=== PATIENT | female | born 1950 | race Caucasian/White ===

== ENCOUNTER 2017-12-19 09:47 | Day surgery (SDC) | payer MEDICARE, OTHER ==
[~2017-12-19] VITALS: Ht 157.5 cm; Wt 116.4 kg
[~2017-12-19 09:47] MED LIST: 0.9% SODIUM CHLORIDE 10 ML SYRINGE IVP ONE; 0.9% SODIUM CHLORIDE 10 ML SYRINGE IVP PRN; ADV500 IH; ALBU8HFA IH; ALBU8HFA4 IH; DILT180C63 PO; FLUT16H NASAL; MELO-107 PO; METOPROLOL TARTRATE 50 MG TABLET PO ONE; PRED20 PO; RIVA20TA PO
[2017-12-19 10:33] LABS: GLUCOMETER DEV NAME(LOC) SDS 5; GLUCOSE,POINT OF CARE 91 MG/DL (70-110)
[2017-12-19] MEDS ORDERED: METOPROLOL TARTRATE 50 MG TABLET ONE (10:35)
[2017-12-19] MEDS ORDERED: NITROGLYCERIN 400 MCG/SUBLINGUAL SPRAY 4.9 GM BOTTLE SL ONE (10:41)
[2017-12-19] MEDS ORDERED: METOPROLOL TARTRATE 5 MG/5 ML VIAL ONE (10:41)
[2017-12-19 10:42] LABS: ANION GAP 9 mmol/L (8-16); CALCIUM, TOTAL 8.9 mg/dL (8.8-10.5); CARBON DIOXIDE 28 mmol/L (22-29); CHLORIDE 104 mmol/L (98-107); CREATININE 0.62 mg/dL (0.60-1.30); GLOMERULAR FILTR. RATE CALC > 60 mL/min (>60); GLUCOSE,RANDOM 92 mg/dL (70-110); POTASSIUM 3.9 mmol/L (3.5-5.1); SODIUM SERUM 141 mmol/L (136-145); UREA NITROGEN, BLOOD 8 mg/dL (7-18)
[2017-12-19] MEDS ORDERED: IOVERSOL 350 MG/ML 150 ML VIAL ONE (11:36)
== END 2017-12-19 12:25 | disposition home or self-care (01) ==
LOC: SURGERY 09:47
PROVIDERS: ATTEND Internal Medicine Cardiovascular Disease
DX: R94.39 Abnormal result of other cardiovascular function study (principal); J98.4 Other disorders of lung; J98.11 Atelectasis; M47.814 Spondylosis without myelopathy or radiculopathy, thoracic region; G47.33 Obstructive sleep apnea (adult) (pediatric); K21.9 Gastro-esophageal reflux disease without esophagitis; E66.9 Obesity, unspecified; J44.9 Chronic obstructive pulmonary disease, unspecified; I08.3 Combined rheumatic disorders of mitral, aortic and tricuspid valves; I27.20 Pulmonary hypertension, unspecified; Z90.89 Acquired absence of other organs; Z88.6 Allergy status to analgesic agent; Z85.3 Personal history of malignant neoplasm of breast; Z90.49 Acquired absence of other specified parts of digestive tract; Z90.710 Acquired absence of both cervix and uterus; Z96.653 Presence of artificial knee joint, bilateral; Z98.890 Other specified postprocedural states; Z79.01 Long term (current) use of anticoagulants; Z79.899 Other long term (current) drug therapy; Z68.42 Body mass index [BMI] 45.0-49.9, adult
CPT/HCPCS: 36415; 75574; 80048; 82962; 93005; J3490; Q9967

== ENCOUNTER 2021-10-11 14:53 | Emergency (ER) | payer MEDICARE, OTHER ==
[~2021-10-11] VITALS: Ht 157.5 cm; Wt 125.0 kg
[~2021-10-11 14:53] MED LIST changes: -0.9% SODIUM CHLORIDE 10 ML SYRINGE IVP ONE; -0.9% SODIUM CHLORIDE 10 ML SYRINGE IVP PRN; +DILT-95 PO; -DILT180C63 PO; -METOPROLOL TARTRATE 50 MG TABLET PO ONE
[2021-10-11 16:17] LABS: BASOPHILS % (AUTO) 1.1 % (0.0-2.0); EOSINOPHILS % (AUTO) 0.8 % (1.0-6.0); HEMATOCRIT 47.7 % (36-46); HEMOGLOBIN 16.2 g/dL (12.0-16.0); LYMPHOCYTES # (AUTO) 1.1 K/uL (1.0-4.8); LYMPHOCYTES % (AUTO) 22.8 % (22.0-44.0); MEAN CORPUSCULAR HEMOGLOBIN 29.9 pg (26.0-34.0); MEAN CORPUSCULAR VOLUME 88 fL (80-100); MONOCYTES # (AUTO) 0.9 K/uL (0.1-1.0); MONOCYTES % (AUTO) 17.8 % (2.0-9.0); NEUTROPHILS # (AUTO) 2.8 K/uL (1.8-7.7); NEUTROPHILS % (AUTO) 57.5 % (40.0-70.0); PLATELET COUNT (AUTO) 209 K/uL (150-450); RED BLOOD CELL COUNT(AUTO) 5.42 MIL/uL (4.00-5.20); RED CELL DISTRIBUTION WIDTH 14.7 % (11.5-14.5)
[2021-10-11] MEDS ORDERED: MONT-40 PO (16:27)
[2021-10-11] MEDS ORDERED: UMEC62.5 IH (16:27)
[2021-10-11] MEDS ORDERED: ALBU8HFA IH (16:27)
[2021-10-11] MEDS ORDERED: PRED10 PO (16:27)
[2021-10-11] MEDS ORDERED: IPRATROPIUM BROMIDE 0.5 MG/2.5 ML NEB SOLUTION NEB ONE (16:30)
[2021-10-11] MEDS ORDERED: ALBUTEROL SULFATE 2.5 MG/0.5 ML NEB SOLUTION NEB ONE (16:30)
[2021-10-11 16:36] LABS: ANION GAP 5 mmol/L (8-16); CALCIUM, TOTAL 8.9 mg/dL (8.8-10.5); CARBON DIOXIDE 30 mmol/L (22-29); CHLORIDE 101 mmol/L (98-107); CREATININE 0.81 mg/dL (0.60-1.30); GLUCOSE,RANDOM 85 mg/dL (70-110); POTASSIUM 3.9 mmol/L (3.5-5.1); SODIUM SERUM 136 mmol/L (136-145); UREA NITROGEN, BLOOD 10 mg/dL (7-18)
[2021-10-11 16:38] LABS: GLOMERULAR FILTR. RATE CALC > 60 mL/min (>60)
[2021-10-11] MEDS ORDERED: IOHEXOL 350 MG/ML 150 ML VIAL ONE (17:30)
[2021-10-11] MEDS ORDERED: SODIUM CHLORIDE 0.9% 100 ML ONE (17:30)
[2021-10-11 17:42] LABS: B-TYPE NATRIURETIC PEPTIDE < 5 pg/mL (0-100)
[2021-10-11] MEDS ORDERED: PredniSONE 10 MG TABLET PO ONE (17:45)
[2021-10-11 17:53] LABS: COVID AG,FIA SOURCE NASAL SWAB
[2021-10-11 19:30] VITALS: BP 135/75
== END 2021-10-11 20:19 | disposition home or self-care (01) ==
LOC: EMS 14:53
DX: U07.1 COVID-19 (principal)
CPT/HCPCS: 36415; 71045; 71275; 80048; 83880; 84484; 85025; 87426; 93005; 94640; 99285; J7050; J7512; Q9967; J7613; Z7610